=== PATIENT | male | born 1995 | race Caucasian/White ===

== ENCOUNTER 2017-09-03 20:41 | Emergency (ER) ==
[2017-09-03 20:47] VITALS: BP 133/83; TEMP 98.7; BMI 21.2
[2017-09-03] MEDS ORDERED: TYLENOL #3 TAB PO STA (21:04)
--- NOTE | 2017-09-03 21:07 | ED.PDOC ---
General ED Provider: Dr. DAE ALEJANDRO Chief Complaint: Nose Laceration Stated Complaint: Injured Nose while playing Basketball,. there is cut on the nose, no LOC, no blurry vision. Time Seen by Physician: 21:05 Mode of Arrival: Walk-In Information Source: Patient Primary Care Provider: ALICE BYRNE Nursing and Triage Documentation Reviewed and Agree: Yes Reviewed sepsis parameters & appropriate labs ordered?: No System Inflammatory Response Syndrome: Not Applicable Sepsis Protocol: For patient's 13 years and over: Temp is 96.8 and below OR 101 and greater Pulse >90 BPM Resp >20/minute Acutely Altered Mental Status Are patient's symptoms suggestive of a new infection, such as: -Pneumonia -Skin, Soft Tissue -Endocarditis -UTI -Bone, Joint Infection -Implantable Device -Acute Abdominal Infection -Wound Infection -Meningitis -Blood Stream Catheter Infection -Unknown Skin Complaint Exam - Laceration/Head/Facial Complaint/Exam Location of Injury: Nose Mechanism of Injury: Laceration Symptoms Are: Still present Initial Severity: Mild Current Severity: Mild Aggravating: None Alleviating: None Associated Signs and Symptoms: Denies: Fever, Chills, Erythema, Numbness, Tingling Differential Diagnoses: Closed Fracture, Laceration Review of Systems - Review Of Systems Constitutional: Reports: No symptoms Eyes: Reports: No symptoms Ears, Nose, Mouth, Throat: Reports: No symptoms Respiratory: Reports: No symptoms Cardiac: Reports: No symptoms GI: Reports: No symptoms : Reports: No symptoms Musculoskeletal: Reports: No symptoms Skin: Reports: No symptoms Neurological: Reports: No symptoms Endocrine: Reports: No symptoms Hematologic/Lymphatic: Reports: No symptoms All Other Systems: Reviewed and Negative Past Medical History - Past Medical History Previously Healthy: Yes Endocrine: Reports: None Cardiovascular: Reports: None Respiratory: Reports: None Hematological: Reports: None Gastrointestinal: Reports: None Genitourinary: Reports: None Neuro/Psych: Reports: None Musculoskeletal: Reports: None Cancer: Reports: None - Surgical History General Surgical History: Reports: None - Family History Family History: Reports: None - Social History Smoking Status: Former smoker Hx Substance Use: No Alcohol Screening: None - Immunizations Tetanus Shot up to Date: Yes Physical Exam - Physical Exam Appearance: Well-appearing, No pain distress, Well-nourished Eyes: CHAYITO, EOMI, Conjunctiva clear ENT: Ears normal, Nose normal, Oropharynx normal Respiratory: Airway patent, Breath sounds clear, Breath sounds equal, Respirations nonlabored Cardiovascular: RRR, Pulses normal, No rub, No murmur GI/: Soft, Nontender, No masses, Bowel sounds normal, No Organomegaly Musculoskeletal: Normal strength, ROM intact, No edema, No calf tenderness Skin: Warm, Dry, Normal color Neurological: Sensation intact, Motor intact, Reflexes intact, Cranial nerves intact, Alert, Oriented Psychiatric: Affect appropriate, Mood appropriate Interpretation - Radiology Interpretation Radiology Interpretation By: Radiologist Radiology Results: Positive Exam Interpreted: CT Scan Critical Care Note - Critical Care Note Total Time (mins): 15 Course - Course Orders, Labs, Meds: Orders Category Date Time Status Acetaminophen with Codeine [Tylenol #3 Tab] MEDS 09/03/17 21:04 Discontinued 1 tab PO ONCE STA Lidocaine HCl/Pf [Lidocaine HCl 1% Sdv] MEDS 09/03/17 21:09 Discontinued 5 ml SUBCUT ONCE STA CT MAXILLOFACIAL W/O CONTRAST Stat RADS 09/03/17 21:04 Completed Medications Discontinued Medications Generic Name Dose Route Start Last Admin Trade Name Doris PRN Reason Stop Dose Admin Acetaminophen/Codeine Phosphate 1 tab 09/03/17 21:04 09/03/17 21:18 Tylenol #3 Tab PO 09/03/17 21:05 1 tab ONCE STA Administration Lidocaine HCl 5 ml 09/03/17 21:09 09/03/17 22:10 Lidocaine Hcl 1% Sdv SUBCUT 09/03/17 21:10 5 ml ONCE STA Administration Vital Signs: Temp Pulse Resp BP Pulse Ox 09/03/17 20:42 98.7 F 112 H 16 133/83 99 Departure - Departure Time of Disposition: 22:14 Disposition: HOME SELF-CARE Discharge Problem: Nasal bone fracture Qualifiers: Encounter type: initial encounter Fracture type: closed Qualified Code(s): S02.2XXA - Fracture of nasal bones, initial encounter for closed fracture Laceration of nose Qualifiers: Encounter type: initial encounter Qualified Code(s): S01.21XA - Laceration without foreign body of nose, initial encounter Instructions: Laceration (ED) Condition: Stable Pt referred to PMD for follow-up: Yes IPMP verified?: No Additional Instructions: Needs f/u with [facility] in 7 days for the suture removal. Needs f/u with ENT for the fractured nose. Allergies/Adverse Reactions: Allergies No Known Allergies Allergy (Unverified 07/03/13 14:29) Home Medications: Ambulatory Orders 1 [No Reported Medications] 07/03/13 Disposition Discussed With: Patient, Family
[2017-09-03] MEDS ORDERED: LIDOCAINE HCL 1% SDV SUBCUT STA (21:09)
--- NOTE | 2017-09-03 22:10 | CT ---
EXAM: CT of the face and orbits without contrast. HISTORY: Injury. PROCEDURE: Contiguous axial CT images of the face and orbits without contrast with coronal and sagit carmina reformats. FINDINGS: There is a comminuted displaced fracture of the right nasal bone. There is minimally displ aced fracture of the left nasal bone. The temporomandibular joints are maintained. The orbits are n ormal in appearance. The globes are intact and symmetric. The paranasal sinuses and mastoid air cell s are well-aerated and normal in appearance. Impression: Bilateral nasal bone fractures as described.
== END 2017-09-03 22:25 | disposition home or self-care (01) ==
LOC: ED 20:41
DX: S01.21XA Laceration without foreign body of nose, initial encounter (principal); S02.2XXA Fracture of nasal bones, initial encounter for closed fracture; Y93.67 Activity, basketball
CPT/HCPCS: 99283